=== PATIENT | male | born 1985 | race Caucasian/White ===

== ENCOUNTER 2020-08-02 10:10 | Outpatient (RCR) | payer BC, SELFPAY ==
[2015-10-01 10:18] VITALS: BMI 27.5
== END 2020-09-25 23:59 ==
LOC: IMMUN 10:10
PROVIDERS: PCP Family Medicine; Referring Provider Family Medicine; Visit Provider Family Medicine
DX: Z23 Encounter for immunization (principal)
CPT/HCPCS: 0001A; 0002A; 91300